=== PATIENT | female | born 1955 | race Hispanic/Latino ===

== ENCOUNTER 2022-02-12 06:44 | Day surgery (SDC) | payer MEDICARE, OTHER ==
[2022-02-12] MEDS ORDERED: ASPIRIN EC 325 MG TAB PO NR (07:30)
[2022-02-12 07:57] LABS: Basophils % (Auto) 0.7 % (0.0-1.8); Eosinophils # (Auto) 0.1 K/mm3 (0.0-0.4); Eosinophils % (Auto) 1.9 % (0.0-4.3); Hematocrit 39.8 % (30.3-42.9); Hemoglobin 13.9 gm/dl (10.1-14.3); Lymphocytes # (Auto) 1.8 K/mm3 (1.2-5.4); Lymphocytes % (Auto) 26.8 % (13.4-35.0); Mean Corpuscular HGB Conc 35 % (30-34); Mean Corpuscular Volume 90 fl (79-97); Monocytes # (Auto) 0.6 K/mm3 (0.0-0.8); Monocytes % (Auto) 9.4 % (0.0-7.3); Platelet Count 221 K/mm3 (140-440); Red Blood Count 4.43 M/mm3 (3.65-5.03); Red Cell Distribution Width 13.6 % (13.2-15.2)
[2022-02-12 08:06] LABS: INR 0.92 (0.87-1.13)
[2022-02-12 08:07] LABS: Partial Thromboplastin Time 36.5 Sec. (24.2-36.6)
[2022-02-12 08:09] LABS: Blood Urea Nitrogen 16 mg/dL (7-17); Calcium 9.5 mg/dL (8.4-10.2); Hemolysis Index 1
[2022-02-12] MEDS ORDERED: HEPARIN/NS 5000 UNIT/500ML 1,000 ML IR ONE (08:10)
[2022-02-12 08:12] LABS: BUN/Creatinine Ratio 23
[2022-02-12] MEDS: SODIUM CHLORIDE 0.9% 500 ML 500 ML IV SCH ×2 (08:41→09:17)
[2022-02-12] MEDS: HEPARIN 10,000 UNITS/10 ML VIAL ONE ×2 (09:15→10:05)
[2022-02-12] MEDS: fentaNYL 100 MCG/2 ML INJ ONE ×2 (09:15→09:54)
[2022-02-12] MEDS: MIDAZOLAM 2 MG/2 ML INJ ONE ×2 (09:15→09:54)
[2022-02-12] MEDS: LIDOCAINE (1%) 10 MG/1 ML VIAL 20 ML MDV ONE ×2 (09:16→09:57)
[2022-02-12] MEDS: VERAPAMIL 5 MG/2 ML INJ ONE ×2 (09:16→10:05)
[2022-02-12] MEDS: NITROGLYCERIN SYRINGE 3 ML ONE ×2 (09:16→10:05)
[2022-02-12] MEDS ORDERED: HYDROcodone/ACETAMINOPHEN 5-325 MG TAB PO PRN (10:25)
[2022-02-12] MEDS ORDERED: traMADol 50 MG TAB PO PRN (10:25)
--- NOTE | 2022-02-12 10:58 | Cardiac Catherization Report ---
DATE OF SERVICE: 02/12/2022 LEFT HEART CATHETERIZATION TREADMILL STRESS ORDERING PHYSICIAN: Dr. Jasmin Watson CLINICAL INFORMATION: A 66-year-old female with severe coronary calcification with chest pressure, had a negative stress test with a strong family history of recurrent symptoms, here for obstructive coronary disease. Procedure was done with moderate sedation, started at 10 o'clock, finished at 10:22, 22 minutes of moderate sedation. DESCRIPTION OF PROCEDURE: Procedure was done via the right radial artery, sterile technique and local anesthesia. A 6-[place]vian radial sheath inserted. Left system was engaged with JL4 catheter. Left main is large and patent, and bifurcates into a large LAD, proximal with mild luminal irregularities, proximal mid. Small diagonal 1 is patent. After that, there is a diagonal 2 that is patent and then the vessel becomes a small caliber and there is a diffuse 20% lesion and the rest of the vessel is patent, but small caliber. Circumflex, large caliber vessel, goes to a large OM2 that is patent with mild luminal irregularities. OM1 is a small caliber vessel, patent. RCA is a large, dominant vessel, diffuse 20-30% in the proximal mid portion. Distal patent. PDA and PLV are [id number] caliber vessel, patent with multiple branches patent. LV gram done in TAMAZIGHT view shows normal LV function. EF 55-60%. LVEDP 11 mmHg, LV is 121, aortic is 120/65. No gradient across the aortic valve on pullback. The 5-Latvian catheters all taken over a guidewire. A 6-[place]vian radial sheath was DC. Radial band applied. No hematoma, no bleeding. SUMMARY: Nonobstructive coronary artery disease. Left main patent. LAD mild luminal irregularities. Mid to distal becomes a small caliber 20%. Small diagonals are patent. Circumflex is patent, goes into a large OM2 patent. OM1 is small caliber, patent. RCA is a large, dominant vessel with diffuse proximal, mid 20-30%. Rest of the vessel is patent. Normal left ventricular function. Treat aggressively for nonobstructive coronary artery disease and discussed with the patient and the patient's family in detail. TID: [id number] RECEIPT: [id number] VRM/DG
--- NOTE | 2022-02-12 11:34 | Short Stay Summary ---
Short Stay Documentation Date of service: 02/12/22 - History H&P: obtained from office - Allergies and Medications Current Medications: Allergies clindamycin Allergy (Verified 02/12/22 07:22) Diarrhea Penicillins Allergy (Verified 02/12/22 07:22) Rash Sulfa (Sulfonamide Antibiotics) Allergy (Verified 02/12/22 07:22) sore in mouth Home Medications Medication Instructions Recorded Confirmed Last Taken Type Aspirin [[place] Aspirin EC] 81 mg PO DAILY 02/12/22 02/12/22 02/10/22 History Atorvastatin [Lipitor Tab] 40 mg PO DAILY 02/12/22 02/12/22 02/11/22 History Citracal + D Maximum Caplet 400 mg PO DAILY 02/12/22 02/12/22 02/11/22 History Cyanocobalamin/Folic Acid [Vitamin 1 each PO DAILY 02/12/22 02/12/22 02/10/22 History F12-Gymxi Acid Tablet] Vitamin D3 1,000 UNIT TAB 2,000 units PO DAILY 02/12/22 02/12/22 02/10/22 History Active Medications Hydrocodone Bitart/Acetaminophen (Hydrocodone/Acetaminophen 5-325 Mg Tab) 1 each PO Q4H PRN PRN Reason: Pain, Moderate (4-6) Sodium Chloride (Nacl 0.9% 500 Ml) 500 mls @ 50 mls/hr IV DIRECT JAMIE Stop: 02/12/22 17:59 Last Admin: 02/12/22 09:17 Dose: 50 mls/hr Tramadol HCl (Tramadol 50 Mg Tab) 50 mg PO Q4H PRN PRN Reason: Pain, Mild (1-3) - Physical exam Integumentary: other (Dressing clean dry and intact with no signs of bleeding or hematoma) - Brief post op/procedure progress note Date of procedure: 02/12/22 Pre-op diagnosis: Nonobstructive coronary artery disease Post-op diagnosis: same Anesthesia: local Estimated blood loss: minimal - Hospital course Hospital course: Patient presents today for cardiac cath. Patient tolerated procedure well with no complication. Patient found to have nonobstructive coronary artery disease. Patient be discharged home and follow-up in the office - Disposition Condition at discharge: Good Disposition: 01 HOME / SELF CARE / HOMELESS - Discharge Diagnoses (1) CAD (coronary artery disease) Status: Acute Short Stay Discharge Plan Activity: advance as tolerated Diet: low fat, low cholesterol, low salt Wound: keep clean and dry, per your surgeon's advice Follow up with: ANIRUDH WELCH DO [Primary Care Provider] - 7 Days ANDREY TAVERAS MD [Staff Physician] - 7 Days
[2022-02-12 13:19] VITALS: BP 107/66
--- NOTE | 2022-02-13 08:53 | Electrocardiograph Report ---
[facility] Test Date: 2022-02-12 Test Time: 07:30:05 Pat Name: CURTIS VICTOR Department: Room: Gender: F Steam Fitter: KIANNA : 1955 Requested By: EARL VERGARA Order Number: [id number] Reading MD: Earl Vergara Measurements Intervals [place] Rate: 75 P: 67 ND: 156 QRS: 76 QRSD: 109 T: 35 QT: 376 QTc: 420 Interpretive Statements Sinus rhythm No previous ECG available for comparison Electronically Signed On 02-13-2022 8:52:33 EDT by Earl Vergara
== END 2022-02-12 14:15 | disposition home or self-care (01) ==
LOC: CATH 06:44 → CATHLABREC 06:44
PROVIDERS: ATTEND Internal Medicine
DX: R07.89 Other chest pain (principal); I25.10 Atherosclerotic heart disease of native coronary artery without angina pectoris; R93.1 Abnormal findings on diagnostic imaging of heart and coronary circulation; E78.00 Pure hypercholesterolemia, unspecified; M19.90 Unspecified osteoarthritis, unspecified site; Z88.0 Allergy status to penicillin; Z88.2 Allergy status to sulfonamides; Z88.8 Allergy status to other drugs, medicaments and biological substances; Z79.899 Other long term (current) drug therapy; Z98.890 Other specified postprocedural states
CPT/HCPCS: 36415; 80048; 85025; 85610; 85730; 93005; 93458; 99156; C1894; J1644; J1815; J2250; J3010; J7040; Q9967